=== PATIENT | male | born 1960 | race Caucasian/White ===

== ENCOUNTER 2016-11-21 08:51 | Day surgery (SDC) | payer BC, MEDICAID ==
[~2016-11-21 08:51] MED LIST: Metoclopramide 10 MG/2 ML SDV IV PRN; Sodium Chloride 0.9% 1,000 ML IV SCH; Sodium Chloride 0.9% 10 ML Syringe FLUSH PRN
[2016-11-21] MEDS ORDERED: Propofol 1,000 MG/100 ML SDV ONE ×2 (10:50→11:45)
[2016-11-21] MEDS ORDERED: Atropine 0.4 MG/ML SDV ONE (10:50)
[2016-11-21 11:40] VITALS: BP 159/80
[2016-11-21] MEDS ORDERED: fentaNYL 250 MCG/5 ML SDV ONE (11:45)
--- NOTE | 2016-11-21 17:06 | OR ---
DATE OF OPERATION: 11/21/2016 PREOPERATIVE DIAGNOSIS: Screening colonoscopy POSTOPERATIVE DIAGNOSIS: Screening colonoscopy PROCEDURE: Colonoscopy. INDICATIONS FOR PROCEDURE: The patient is a 56-year-old male, who presents today for screening colonoscopy. The patient has had previous colonoscopy in the past, 10 or 15 years ago, and was found to have polyps at that time. The patient is overdue for his colonoscopy. The patient denies any blood in the stools, lack of appetite, recent weight loss , or change in bowel habits. DESCRIPTION OF PROCEDURE: Informed consent was obtained from the patient. The patient was taken to the operating room and placed on the tablet in left lateral decubitus position. Monitored anesthesia care was applied. Digital rectal exam reveals normal sphincter tone and no palpable abnormalities. The endoscope was passed through the anus under direct visualization and maneuvered until reaching the cecum. Counter pressure was utilized and patient was placed in supine position as well. Colonoscope was withdrawn slowly and the mucosa was carefully examined. No polyps were identified. No areas of inflammation, erosion, AVM, or ischemia were identified. The patient did have some mild diverticulosis in the sigmoid colon. Scope was retroflexed in the rectum which was unremarkable. Colonoscope was then removed. The tolerated the procedure well and was brought to the recovery room in good condition. FINDINGS: SIGMOID DIVERTICULOSIS RECOMMENDATIONS: Repeat colonoscopy in 10 years. EMBER/VIANNEY /[id number] ALEXANDER
== END 2016-11-21 12:40 | disposition home or self-care (01) ==
LOC: LB.SDS 08:51
PROVIDERS: ATTEND Surgery
DX: Z12.11 Encounter for screening for malignant neoplasm of colon (principal); K57.30 Diverticulosis of large intestine without perforation or abscess without bleeding; Z86.010 Personal history of colon polyps
CPT/HCPCS: 45378; J0461; J3010; J7040; J3490